=== PATIENT | male | born 1940 | race Two or more races ===

== ENCOUNTER 2019-08-17 11:08 | Emergency (ER) | payer MEDICARE, OTHER ==
[~2019-08-17] VITALS: Ht 177.8 cm; Wt 81.6 kg
--- NOTE | 2019-08-17 11:30 | NUR ---
PT [facility] C/O NAUSEA AND VOMITING 5 X STARTED TODAY. ZOFRAN 4MG IV GIVEN TEACHING PASTOR. PT AAOX4, VSS, BREATHING EVEN AND UNLABORED ON ROOM AIR. PT CONNECTED TO THE MONITOR
[2019-08-17] MEDS ORDERED: DONE23TA3 PO (11:35)
[2019-08-17] MEDS ORDERED: CLOT15CR63 TP (11:35)
[2019-08-17] MEDS ORDERED: ATOR10TA PO (11:35)
[2019-08-17] MEDS ORDERED: DUTA0.5C15 PO (11:35)
[2019-08-17] MEDS ORDERED: QUET25TA PO (11:35)
[2019-08-17] MEDS ORDERED: FLUO60SO3 TP (11:35)
[2019-08-17] MEDS ORDERED: HYDR12.55 PO (11:35)
[2019-08-17] MEDS ORDERED: TRIA80OI TP (11:35)
[2019-08-17] MEDS ORDERED: AMLO5TAB9 PO (11:35)
[2019-08-17] MEDS ORDERED: LIDO30AD10 TP (11:35)
[2019-08-17] MEDS ORDERED: HYDR28.32 TP (11:35)
[2019-08-17] MEDS ORDERED: ASPI-1169 PO (11:35)
[2019-08-17] MEDS ORDERED: MAGN400T26 PO (11:35)
[2019-08-17] MEDS ORDERED: GABA-534 PO (11:35)
[2019-08-17] MEDS ORDERED: OLOP2.5D EACHEYE (11:35)
[2019-08-17] MEDS ORDERED: CLON0.5T4 PO (11:35)
[2019-08-17] MEDS ORDERED: TERA2CAP4 PO (11:35)
[2019-08-17] MEDS ORDERED: CRIS60OI TP (11:35)
[2019-08-17] MEDS ORDERED: OLME40TA12 PO (11:35)
[2019-08-17] MEDS ORDERED: MEMA28CA PO (11:35)
[2019-08-17] MEDS ORDERED: DOCU-141 PO (11:35)
[2019-08-17] MEDS ORDERED: ZOLP10TA6 PO (11:35)
[2019-08-17] MEDS ORDERED: HYDR30CR99 RC (11:35)
[2019-08-17] MEDS ORDERED: ATEN25TA PO (11:35)
[2019-08-17] MEDS ORDERED: IBUP-1957 PO (11:35)
--- NOTE | 2019-08-17 11:42 | NUR ---
BLOOD DRAWN AND SENT TO LAB.
--- NOTE | 2019-08-17 11:46 | NUR ---
EKG AT BEDSIDE
[2019-08-17 11:47] LABS: BASOPHILS # (AUTO) 0.1 /CMM (0.0-0.2); BASOPHILS % (AUTO) 1.5 % (0.0-2.0); EOSINOPHILS % (AUTO) 2.3 % (0.0-6.0); HEMATOCRIT 36 % (39-51); HEMOGLOBIN 12.5 g/dL (13.5-17.5); LYMPHOCYTES # (AUTO) 1.2 /CMM (0.8-4.8); LYMPHOCYTES % (AUTO) 20.9 % (20.0-44.0); MEAN CORPUSCULAR HGB CONC 35 g/dl (31.0-36.0); MEAN CORPUSCULAR VOLUME 88 fL (80-96); MONOCYTES # (AUTO) 0.5 /CMM (0.1-1.30); MONOCYTES % (AUTO) 8.1 % (2.0-12.0); NEUTROPHILS # (AUTO) 3.9 /CMM (1.8-8.9); NEUTROPHILS % (AUTO) 67.2 % (43.0-81.0); PLATELET COUNT (AUTO) 172 /CMM (150-450); RED BLOOD CELL COUNT(AUTO) 4.13 MIL/uL (4.5-6.0); WHITE BLOOD COUNT (AUTO) 5.7 K/uL (4.3-11.0)
[2019-08-17] MEDS ORDERED: IV NS 0.9% 500 ML BAG IV ONE (12:00)
[2019-08-17 12:09] LABS: CARBON DIOXIDE 27 mmol/L (21-32); CHLORIDE 102 mmol/L (98-107); CREATININE 1.5 mg/dL (0.6-1.3); GLUCOSE 125 mg/dL (74-106); POTASSIUM 4.3 mmol/L (3.5-5.1); SODIUM SERUM 136 mmol/L (136-145); UREA NITROGEN, BLOOD 20 mg/dL (7-18)
[2019-08-17 12:15] LABS: ALANINE AMINOTRANSFERASE 19 U/L (12-78); ALBUMIN 3.3 g/dL (3.4-5.0); ALKALINE PHOSPHATASE 83 U/L (46-116); ASPARTATE AMINOTRANSFERASE 26 U/L (15-37); BILIRUBIN,DIRECT 0.1 mg/dL (0.0-0.2); BILIRUBIN,TOTAL 0.3 mg/dL (0.2-1.0); LIPASE 154 U/L (73-393); TOTAL PROTEIN, SERUM 6.3 g/dL (6.4-8.2)
[2019-08-17 12:51] VITALS: BP 118/74
--- NOTE | 2019-08-17 12:51 | NUR ---
Patient discharged to home in stable condition. Written and verbal after care instructions given. Patient verbalizes understanding of instruction.
== END 2019-08-17 12:51 | disposition home or self-care (01) ==
LOC: ER 11:16
DX: R11.2 Nausea with vomiting, unspecified (principal); E86.0 Dehydration; R00.2 Palpitations; I10 Essential (primary) hypertension; N40.0 Benign prostatic hyperplasia without lower urinary tract symptoms; F03.90 Unspecified dementia, unspecified severity, without behavioral disturbance, psychotic disturbance, mood disturbance, and anxiety; E78.5 Hyperlipidemia, unspecified; G62.9 Polyneuropathy, unspecified; Z79.899 Other long term (current) drug therapy; Z79.82 Long term (current) use of aspirin; Z98.890 Other specified postprocedural states
CPT/HCPCS: 36415; 80048; 80076; 83690; 84484; 85025; 93005; 99284; J7040

== ENCOUNTER 2019-08-27 19:18 | Inpatient (IN) | payer MEDICARE, OTHER ==
[~2019-08-27] VITALS: Ht 162.6 cm; Wt 76.2 kg
[~2019-08-27 19:18] MED LIST: AMLO5TAB9 PO; ASPI-1169 PO; ATEN25TA PO; ATOR10TA PO; CLON0.5T4 PO; CLOT15CR63 TP; CRIS60OI TP; DOCU-141 PO; DONE23TA3 PO; DUTA0.5C15 PO; FLUO60SO3 TP; GABA-534 PO; HYDR12.55 PO; HYDR28.32 TP; HYDR30CR99 RC; IBUP-1957 PO; LIDO30AD10 TP; MAGN400T26 PO; MEMA28CA PO; OLME40TA12 PO; OLOP2.5D EACHEYE; QUET25TA PO; TERA2CAP4 PO; TRIA80OI TP; ZOLP10TA6 PO
--- NOTE | 2019-08-27 19:32 | NUR ---
"s/p trip and fall from unknown flight of stairs, laceration on left side of face, unknown last tdap" pt awake and alert, -sob, nad noted, pending md abdul
[2019-08-27] MEDS ORDERED: TDAP [DIPH/PERTUSSIS/TET] 0.5 ML VIAL IM ONE ×2 (19:37→20:00)
[2019-08-27 19:44] LABS: BASOPHILS # (AUTO) 0.1 /CMM (0.0-0.2); HEMATOCRIT 39 % (39-51); HEMOGLOBIN 13.8 g/dL (13.5-17.5); LYMPHOCYTES # (AUTO) 1.6 /CMM (0.8-4.8); LYMPHOCYTES % (AUTO) 13.5 % (20.0-44.0); MEAN CORPUSCULAR HGB CONC 35 g/dl (31.0-36.0); MEAN CORPUSCULAR VOLUME 85 fL (80-96); MONOCYTES % (AUTO) 8.8 % (2.0-12.0); NEUTROPHILS # (AUTO) 8.8 /CMM (1.8-8.9); NEUTROPHILS % (AUTO) 74.7 % (43.0-81.0); PLATELET COUNT (AUTO) 252 /CMM (150-450); RED BLOOD CELL COUNT(AUTO) 4.61 MIL/uL (4.5-6.0); WHITE BLOOD COUNT (AUTO) 11.8 K/uL (4.3-11.0)
[2019-08-27] MEDS ORDERED: ONDANSETRON HCL/PF 4 MG/2 ML VIAL ONE (19:50)
[2019-08-27 20:06] LABS: ALANINE AMINOTRANSFERASE 22 U/L (12-78); ALBUMIN 4.2 g/dL (3.4-5.0); ALKALINE PHOSPHATASE 97 U/L (46-116); ASPARTATE AMINOTRANSFERASE 33 U/L (15-37); BILIRUBIN,DIRECT 0.1 mg/dL (0.0-0.2); BILIRUBIN,TOTAL 0.4 mg/dL (0.2-1.0); CALCIUM, SERUM 8.8 mg/dL (8.5-10.1); CARBON DIOXIDE 27 mmol/L (21-32); CHLORIDE 88 mmol/L (98-107); CREATININE 1.4 mg/dL (0.6-1.3); GLUCOSE 124 mg/dL (74-106); POTASSIUM 3.5 mmol/L (3.5-5.1); SODIUM SERUM 124 mmol/L (136-145); TOTAL PROTEIN, SERUM 7.5 g/dL (6.4-8.2); UREA NITROGEN, BLOOD 27 mg/dL (7-18)
--- NOTE | 2019-08-27 21:32 | NUR ---
-christy for any updates or translation
--- NOTE | 2019-08-27 21:47 | NUR ---
BED ASSIGNMENT TELE 106
[2019-08-27] MEDS ORDERED: ONDANSETRON HCL/PF - ER 4 MG/2 ML VIAL IV ONE (22:00)
--- NOTE | 2019-08-27 22:07 | NUR ---
report given to joshua abdul for pranav pt will be transported to 1st floor
[2019-08-27 22:30] VITALS: BP 174/71
--- NOTE | 2019-08-27 22:30 | NUR ---
HAND SHAPER ADMISSION NOTES RECEIVED PATIENT FROM ER VIA [facility] SAFELY TRANSFERRED TO BED, AMBULATORY UNSTEADY GAIT USES CANE, AWAKE ALERT AND ORIENTED X4, MALAYSIAN SPEAKING ABLE TO CARRY ON CONVERSATION, THROUGH WRITTEN NOTES, RESPIRATIONS EVEN AND UNLABORED WITH EQUAL RISE AND FALL OF CHEST, PLACED ON FINISH FILER SB 59, ORIENTED TO STAFF AND CALL LIGHT AND KEPT WITHIN REACH, TOILETING OFFERED, NOTED WITH LACERATION TO LEFT SCALP AREA, AND LEFT FACIAL ORBITAL AREA SWOLLEN AND BRUISED, WOUND PHOTOS TAKEN PLACED IN CHART , BELONGING LIST DONE ,DAUGHTER TOOK HOME MONEY AND WATCH. IV SITE TO LEFT AC #20G INTACT AND PATENT, STATES PAIN 6/10 AT THIS TIME, NOTED CHANGE IN VS. WILL CONTINUE TO MONITOR AND FOLLOW MD ORDERS.
--- NOTE | 2019-08-27 22:36 | NUR ---
transported to [address] [place] [id number]
[2019-08-28] VITALS (7 sets, daily range): BP systolic 137–162; BP diastolic 38–68
[2019-08-28] MEDS ORDERED: MAG HYDROX/AL HYDROX/SIMETH 30 ML UDC PO PRN
[2019-08-28] MEDS ORDERED: ONDANSETRON HCL/PF 4 MG/2 ML VIAL IVP PRN
[2019-08-28] MEDS ORDERED: ACETAMINOPHEN 325 MG TABLET PO PRN
[2019-08-28] MEDS ORDERED: HYDROCODONE/APAP 5/325MG 1 EACH TABLET PO PRN
[2019-08-28] MEDS ORDERED: MAGNESIUM HYDROXIDE 30 ML UDC PO PRN
[2019-08-28] MEDS ORDERED: Z GUARD REMEDY 2 OZ OINT TP PRN
[2019-08-28] MEDS: ZOLPIDEM TARTRATE 5 MG TABLET PO PRN ×2 (00:08→23:06)
[2019-08-28] MEDS: IV NS 0.9% 1,000 ML IV PRN ×2 (00:08→11:45)
--- NOTE | 2019-08-28 00:08 | NUR ---
GAS METER INSTALLER HELPER NOTES PATIENT STATES NO PAIN DOES NOT NORCO PAIN MEDICATION , REQUESTED FOR SLEEP AIDE INSTEAD. NOTED VS HAVE DECREASED. VS WNL. BP WNL 137/67.
[2019-08-28 05:36] LABS: APPEARANCE,URINE CLEAR (CLEAR); BILIRUBIN,URINE NEGATIVE (NEGATIVE); BLOOD, URINE TRACE-INTA Ery/uL (NEGATIVE); COLOR,URINE YELLOW (YELLOW); KETONES,URINE 15 (NEGATIVE); LEUKOCYTE ESTERASE ,URINE NEGATIVE (NEGATIVE); NITRITE, URINE NEGATIVE (NEGATIVE); PROTEIN,URINE NEGATIVE (NEGATIVE); UGLUCOSE NEGATIVE (NEGATIVE); UROBILINOGEN,URINE 0.2 EU/dL (0.2)
[2019-08-28 06:03] LABS: RBC,URINE 0-2 /HPF (0-2); WBC,URINE 0-2 /HPF (0-3)
[2019-08-28 06:04] LABS: BACTERIA,URINE Rare /HPF (None Seen); SQUAMOUS EPITHELIAL CELL,UR Rare /HPF (None Seen)
--- NOTE | 2019-08-28 06:28 | NUR ---
MUSEUM DIRECTOR CLOSING NOTES PATIENT AMBULATORY UNSTEADY GAIT USES CANE, AWAKE ALERT AND ORIENTED X4, MALDIVIAN SPEAKING ABLE TO CARRY ON CONVERSATION, THROUGH WRITTEN NOTES, RESPIRATIONS EVEN AND UNLABORED WITH EQUAL RISE AND FALL OF CHEST, PLACED ON PROCESSING CLERK SB 59, NO CHANGES THROUGHOUT SHIFT, CALL LIGHT KEPT WITHIN REACH, TOILETING OFFERED, URINAL WITHIN REACH , LACERATION TO LEFT SCALP AREA WITH DRY DSG, NO BLEEDING NOTED AT THIS TIME AND LEFT FACIAL ORBITAL AREA SWOLLEN AND BRUISED, DENIES ANY PAIN AT THIS TIME, NO CHANGE IN LOC ,IV SITE TO LEFT AC #20G INTACT AND PATENT IVF RUNNING ORDERED, WILL CONTINUE TO MONITOR AND ENDORSE TO NEXT SHIFT, REMAINS COMFORTABLE AT THIS TIME.BP WNL.
--- NOTE | 2019-08-28 06:49 | NUR ---
LATENT PRINT EXAMINER NOTES PATIENT COMPLAINT OF FEELING OF NAUSEA. ZOFRAN PRN GIVEN , WILL CONTINUE TO MONITOR FOR EFFECTIVENESS.
[2019-08-28 07:56] LABS: BASOPHILS % (AUTO) 0.6 % (0.0-2.0); EOSINOPHILS % (AUTO) 2.2 % (0.0-6.0); HEMATOCRIT 36 % (39-51); LYMPHOCYTES # (AUTO) 1.4 /CMM (0.8-4.8); LYMPHOCYTES % (AUTO) 19.5 % (20.0-44.0); MEAN CORPUSCULAR HGB CONC 36 g/dl (31.0-36.0); MEAN CORPUSCULAR VOLUME 85 fL (80-96); MONOCYTES # (AUTO) 0.8 /CMM (0.1-1.30); MONOCYTES % (AUTO) 11.3 % (2.0-12.0); NEUTROPHILS # (AUTO) 4.9 /CMM (1.8-8.9); NEUTROPHILS % (AUTO) 66.4 % (43.0-81.0); PLATELET COUNT (AUTO) 214 /CMM (150-450); RED BLOOD CELL COUNT(AUTO) 4.27 MIL/uL (4.5-6.0); WHITE BLOOD COUNT (AUTO) 7.3 K/uL (4.3-11.0)
--- NOTE | 2019-08-28 08:00 | NUR ---
TELE1/RN AM SHIFT INITIAL RECEIVED PT AWAKE IN BED, PT A/O X 4, HARD OF HEARING, DENIES ANY SYMPTOMS. ON ROOM AIR, SATURATING @ 98%, RESPIRATIONS EVEN & UNLABORED, LUNG SOUNDS CLEAR. ON TELE MONITORING SINUS JOEY, HR 54, ASYMPTOMATIC. PT WITH ON GOING IV INFUSION OF NS @ 75CC/HR, IV SITE PATENT WITH NO S/S OF INFECTION. PT NOTED WITH FACIAL BRUISING (FROM THE FALL HE HAD). NO SCHEDULED AM MEDS TO BE GIVEN. PT IS COMFORTABLE. CL WITHIN REACHED AND SAFETY MAINTAINED. ON GOING MONITORING.
--- NOTE | 2019-08-28 09:22 | NUR ---
TELE1/RN PHYSICAL THERAPY PT BEING SEEN BY PHYSICAL THERAPIST FOR EVALUATION. MONITORING CONTINUED.
[2019-08-28 09:45] LABS: CHOLESTEROL 212 mg/dL (<200); HDL CHOLESTEROL 49 mg/dL (40-60); LDL 141 mg/dL (0-99); THYROID STIMULATING HORMONE 1.201 uIU/mL (0.358-3.74); TRIGLYCERIDES 83 mg/dL (30-150)
[2019-08-28 10:15] LABS: CALCIUM, SERUM 8.6 mg/dL (8.5-10.1); CARBON DIOXIDE 27 mmol/L (21-32); CHLORIDE 90 mmol/L (98-107); CREATININE 1.2 mg/dL (0.6-1.3); GLUCOSE 96 mg/dL (74-106); POTASSIUM 3.2 mmol/L (3.5-5.1); SODIUM SERUM 126 mmol/L (136-145); UREA NITROGEN, BLOOD 18 mg/dL (7-18)
[2019-08-28 10:16] LABS: ALANINE AMINOTRANSFERASE 20 U/L (12-78); ALBUMIN 3.6 g/dL (3.4-5.0); ALKALINE PHOSPHATASE 89 U/L (46-116); ASPARTATE AMINOTRANSFERASE 36 U/L (15-37); BILIRUBIN,TOTAL 0.5 mg/dL (0.2-1.0); MAGNESIUM 1.8 mg/dL (1.8-2.4); PHOSPHORUS 2.6 mg/dL (2.5-4.9); TOTAL PROTEIN, SERUM 6.6 g/dL (6.4-8.2)
--- NOTE | 2019-08-28 10:38 | NUR ---
TELE1/RN ROUNDS - DR. CONDE PT SEEN & EXAMINED BY DR. CONDE. NO NEW ORDER RECEIVED AT THIS TIME. MONITORING CONTINUED.
--- NOTE | 2019-08-28 11:40 | NUR ---
WOUND CARE CONSULT: PT PRESENTS WITH LARGE DRY WOUND TO SCALP AND OPEN WOUND TO SCALP, PRESENT ON ADMISSION. RECOMMEND SURGICAL CONSULT. DR GOODRICH AWARE OF SURGICAL CONSULT REQUEST. PT IS AMBULATORY WITH ASSISTANCE AND IS CONTINENT AT THIS TIME. NONSTICK DRESSING IN PLACE. WILL SEE PRN. Addendum: 08/28/19 at 1141 by SELVIN BERMUDEZ WNDNU Amended: Links added.
[2019-08-28] MEDS: POTASSIUM CHLORIDE 20 MEQ TAB.PRT.SR PO SCH ×3 (11:45→14:24)
[2019-08-28] MEDS ORDERED: DONE10TA11 PO (13:19)
[2019-08-28] MEDS ORDERED: GABA800T11 PO (13:19)
[2019-08-28] MEDS ORDERED: IBUP-1957 PO (13:19)
[2019-08-28] MEDS ORDERED: DUTA0.5C PO (13:19)
[2019-08-28] MEDS ORDERED: ATOR10TA PO (13:19)
[2019-08-28] MEDS ORDERED: HYDR12.5 PO (13:19)
[2019-08-28] MEDS ORDERED: TRIA15OI2 TP (13:19)
[2019-08-28] MEDS ORDERED: LIDO700A30 TP (13:19)
[2019-08-28] MEDS ORDERED: ATEN25TA PO (13:19)
[2019-08-28] MEDS ORDERED: TERA5CAP4 PO (13:19)
[2019-08-28] MEDS ORDERED: ASPI-605 PO (13:19)
[2019-08-28] MEDS ORDERED: ZOLP10TA6 PO (13:19)
[2019-08-28] MEDS ORDERED: CLON0.5T4 PO (14:29)
[2019-08-28] MEDS ORDERED: OLME20TA13 PO (14:29)
[2019-08-28] MEDS ORDERED: FLUO30CR11 TP (14:29)
[2019-08-28] MEDS ORDERED: QUET50TA15 PO (14:29)
[2019-08-28] MEDS ORDERED: MAGN400T26 PO (14:29)
[2019-08-28] MEDS ORDERED: MEMA28CA PO (14:29)
[2019-08-28] MEDS ORDERED: DOCU-141 PO (14:29)
[2019-08-28] MEDS ORDERED: AMLO5TAB9 PO (14:29)
[2019-08-28 14:46] LABS: FREE PSA 0.26 ng/mL (0.00-45); PROSTATE SPECIFIC ANTIGEN SCR 2.68 ng/mL (0.00-4.00)
--- NOTE | 2019-08-28 15:30 | NUR ---
TELE1/RN HOME MEDS NOTIFIED DR. VALENZUELA VIA PHONE THAT PT'S HOME MEDICATIONS WAS ENTERED TO THE SYSTEM AND IS READY TO BE RECONCILED.
--- NOTE | 2019-08-28 19:36 | NUR ---
TELE1/RN AM SHIFT END NOTES NO ACUTE CHANGE OF CONDITION NOTED DURING THE SHIFT. ALL NEEDS MET. PT ENDORSED TO PM NURSE TO CONTINUE CARE. CL WITHIN REACHED AND SAFETY MAINTAINED.
--- NOTE | 2019-08-28 19:45 | NUR ---
TAKER OFF BRAKER MACHINE NOTE PATIENT REPORT GIVEN BEDSIDE. PATIENT IN BED A/O X 4 HARD OF HEARING. PATIENT BEING SEEN BY GITA VILA AT THIS TIME. PATIENT ABLE TO COMMUNICATE WITH CLIP BOARD. PATIENT DENIES CHEST PAIN, SOB, , PAIN OR DISCOMFORT.PATIENT PATIENT HAS LAC RUNNING 75 ML/HR NO S/S OF INFECTION OR INFILTRATION. SAFETY PRECAUTIONS IN PLACE. PATIENT VERBALIZES USE OF CALL LIGHT. RN WILL CONTINUE TO MONITOR FOR CHANGES.
[2019-08-29] VITALS (7 sets, daily range): BP systolic 104–166; BP diastolic 46–68
--- NOTE | 2019-08-29 02:22 | NUR ---
EVENTS AND PROMOTIONS ASSISTANT NOTE PATIENT REPORT GIVEN TO PRICILLA WARE FOR RACH.
[2019-08-29] MEDS: IV NS 0.9% 1,000 ML IV PRN ×2 (03:28→23:58)
[2019-08-29 06:25] LABS: BASOPHILS # (AUTO) 0.1 /CMM (0.0-0.2); BASOPHILS % (AUTO) 1.3 % (0.0-2.0); EOSINOPHILS % (AUTO) 4.8 % (0.0-6.0); HEMATOCRIT 36 % (39-51); HEMOGLOBIN 12.9 g/dL (13.5-17.5); LYMPHOCYTES # (AUTO) 1.9 /CMM (0.8-4.8); LYMPHOCYTES % (AUTO) 29.8 % (20.0-44.0); MEAN CORPUSCULAR HGB CONC 36 g/dl (31.0-36.0); MEAN CORPUSCULAR VOLUME 85 fL (80-96); MONOCYTES # (AUTO) 0.8 /CMM (0.1-1.30); MONOCYTES % (AUTO) 12.1 % (2.0-12.0); NEUTROPHILS # (AUTO) 3.4 /CMM (1.8-8.9); PLATELET COUNT (AUTO) 208 /CMM (150-450); RED BLOOD CELL COUNT(AUTO) 4.22 MIL/uL (4.5-6.0); WHITE BLOOD COUNT (AUTO) 6.4 K/uL (4.3-11.0)
[2019-08-29 06:46] LABS: ALBUMIN 3.3 g/dL (3.4-5.0); BILIRUBIN,TOTAL 0.4 mg/dL (0.2-1.0); CALCIUM, SERUM 8.7 mg/dL (8.5-10.1); CREATININE 1.2 mg/dL (0.6-1.3); MAGNESIUM 1.9 mg/dL (1.8-2.4); PHOSPHORUS 2.3 mg/dL (2.5-4.9); POTASSIUM 3.6 mmol/L (3.5-5.1); TOTAL PROTEIN, SERUM 6.2 g/dL (6.4-8.2)
--- NOTE | 2019-08-29 06:49 | NUR ---
VENEER SAWYER CLOSING NOTES NO ACUTE CHANGES SINCE RACH TRANSFER. PATIENT RESTING IN BED IN NO DISTRESS. BREATHING EVEN AND UNLABORED ON ROOM AIR. SR-SB ON TELE MONITOR, CURRENT HR 50s. ASYMPTOMATIC. DENIES PAIN OR DISCOMFORT. DENIES N/V. IV INTACT AND PATENT WITH IVF INFUSING. REMAINS AFEBRILE. PATIENT TAKES OFF BURN NET THROUGHOUT SHIFT. ALL OTHER NEEDS ATTENDED TO. SAFETY MEASURES IN PLACE. CALL LIGHT WITHIN REACH. WILL ENDORSE TO ONCOMING NURSE FOR RACH.
--- NOTE | 2019-08-29 07:49 | NUR ---
OPENING NOTES REPORT RECEIVED FROM DOCK OPERATIONS SUPERVISOR RN. PT IS ASLEEP IN BED WITH EQUAL CHEST RISE BILATERALLY. WALKER NEED BED SIDE. PT IV GOING AT 75 MLS/ HR NS ORDERED. ON TELE MONITOR PT IS CURRENTLY 64HR SB, WITH REPORTS THAT PT DROPS INTO THE 30S. BED IS LOCKED AND IN LOWEST POSITION WITH CALL LIGHT IN REACH OF PATIENT. WILL CONTINUE TO MONITOR.
[2019-08-29] MEDS ORDERED: HYDROCHLOROTHIAZIDE 12.5 MG CAPSULE PO SCH (10:30)
[2019-08-29] MEDS: LIDOCAINE 5% (PATCH) 1 EA PATCH TP SCH (10:30)
[2019-08-29] MEDS ORDERED: ZOLPIDEM TARTRATE 10 MG TABLET PO PRN (10:30)
[2019-08-29] MEDS: FLUOCINONIDE 0.05% CREAM 60 GM TUBE TP SCH (10:30)
[2019-08-29] MEDS: DUTASTERIDE (0.5 MG) 0.5 MG CAPSULE PO SCH (10:59)
[2019-08-29] MEDS: ASPIRIN EC 81 MG TABLET.DR PO SCH (10:59)
[2019-08-29] MEDS: LOSARTAN POTASSIUM 25 MG TABLET PO SCH (11:00)
[2019-08-29] MEDS: AMLODIPINE BESYLATE 5 MG TABLET PO SCH ×2 (11:00→16:31)
[2019-08-29] MEDS: HYDROCHLOROTHIAZIDE 25 MG TABLET PO SCH (13:08)
[2019-08-29] MEDS ORDERED: K PHOS NEUTRAL 250 MG TABLET PO ONE (13:30)
--- NOTE | 2019-08-29 15:23 | NUR ---
Social service consult requested by Hubert Levi DNP for advance directive with pts daughter, Sowmya, being present. SW attempted to meet with pt and pt family regarding advance directive but pts daughter Sowmya was not present and pt unable to provide contact information for SW to contact her. No information regarding next of kin or person to notify listed on facesheet. Pt also unable to provide a time when his daughter will be at [facility] next. SW will follow up with pt and pt family at a later time.
[2019-08-29 15:40] LABS: CREATININE, URINE 95.5 MG/DL (30.0-125.0); URINE TOTAL PROTEIN 12.3 mg/dL (0-11.9)
[2019-08-29 15:45] LABS: APPEARANCE,URINE Clear (CLEAR); BILIRUBIN,URINE Negative (NEGATIVE); BLOOD, URINE Negative Ery/uL (NEGATIVE); COLOR,URINE Yellow (YELLOW); KETONES,URINE Negative (NEGATIVE); LEUKOCYTE ESTERASE ,URINE Negative (NEGATIVE); NITRITE, URINE Negative (NEGATIVE); PH,URINE 6.5 (5.0-8.0); PROTEIN,URINE Negative (NEGATIVE); UGLUCOSE Negative (NEGATIVE); UROBILINOGEN,URINE 0.2 EU/dL (0.2)
[2019-08-29] MEDS: DOCUSATE SODIUM 100 MG CAPSULE PO SCH (16:30)
[2019-08-29] MEDS: MAGNESIUM OXIDE 400 MG TABLET PO SCH (16:32)
--- NOTE | 2019-08-29 17:00 | NUR ---
MD AWARE OF LOW BP. Addendum: 08/29/19 at 1857 by MELISSA BAUTISTA RN MD AWARE OF HIGH BP. DISREGARD LOW BP.
[2019-08-29] MEDS: TERAZOSIN HCL 5 MG CAPSULE PO SCH (17:47)
[2019-08-29 17:48] LABS: EOSINOPHIL,URINE None Seen
--- NOTE | 2019-08-29 18:49 | NUR ---
RN CLOSING NOTES PT DENIES ANY PAIN OR SOB. PT HAS NS RUNNING AT 75 MLS/HR. IV SITE IS INTACT AND FLUSHING. PT WALKER AT BEDSIDE PT IS ABLE TO AMBULATE TO RESTROOM. BED IS LOCKED AND IN LOWEST POSITION WITH CALL LIGHT IN REACH. WILL ENDORSE RACH TO KEY WORKER RN.
--- NOTE | 2019-08-29 19:15 | NUR ---
CHANGE OF SHIFT REPORT Patient in bed, awake, A/O x4. Stable oxygen saturation on RA, denies SOB. IVF infusing. Instruction to use call light for assistance, verbalized understanding. Safety measure maintained.
[2019-08-29] MEDS ORDERED: QUETIAPINE FUMARATE 25 MG TABLET PO SCH (22:00)
[2019-08-29] MEDS ORDERED: ATORVASTATIN 10 MG TABLET PO SCH (22:00)
[2019-08-29] MEDS ORDERED: DONEPEZIL 5 MG TABLET PO SCH (22:00)
[2019-08-29] MEDS ORDERED: GABAPENTIN 400 MG CAPSULE PO SCH (22:00)
[2019-08-29] MEDS ORDERED: ALBUTEROL SULFATE 2 MG TABLET ONE (22:32)
[2019-08-30 04:54] VITALS: BP 140/61
--- NOTE | 2019-08-30 06:15 | NUR ---
END OF SHIFT REPORT Patient in bed, on RA tolerating well. IVF infusing, denies pain. slept well with PRN Ambien. No acute events overnight. Fall precaution maintained.
[2019-08-30 08:00] VITALS: BP 130/56
[2019-08-30] MEDS: DUTASTERIDE (0.5 MG) 0.5 MG CAPSULE PO SCH (08:30)
[2019-08-30] MEDS: DOCUSATE SODIUM 100 MG CAPSULE PO SCH ×2 (08:30→17:18)
[2019-08-30] MEDS: MAGNESIUM OXIDE 400 MG TABLET PO SCH ×2 (08:30→17:18)
[2019-08-30] MEDS: ASPIRIN EC 81 MG TABLET.DR PO SCH (08:30)
[2019-08-30] MEDS: LOSARTAN POTASSIUM 25 MG TABLET PO SCH (08:32)
[2019-08-30] MEDS: AMLODIPINE BESYLATE 5 MG TABLET PO SCH ×2 (08:32→17:18)
[2019-08-30] MEDS: HYDROCHLOROTHIAZIDE 25 MG TABLET PO SCH (08:32)
[2019-08-30] MEDS: FLUOCINONIDE 0.05% CREAM 60 GM TUBE TP SCH (08:33)
[2019-08-30] MEDS: LIDOCAINE 5% (PATCH) 1 EA PATCH TP SCH (08:33)
[2019-08-30] MEDS ORDERED: TRIAMCINOLONE OINT 0.1% 15 GM TUBE TP SCH (09:00)
[2019-08-30] MEDS ORDERED: MEMANTINE HCL 5 MG TABLET PO SCH (09:00)
--- NOTE | 2019-08-30 11:56 | NUR ---
Follow up: Social service consult requested by Hubert Levi DNP for advance directive with pts daughter, Sowmya, being present. BRITTA attempted to meet with pt and pt family again regarding advance directive but pts daughter Sowmya was not present. SW called pts daughter, Sowmya [[phone]] and left her a voicemail regarding the advance directive application and process. SW left call back number for daughter to contact when she visits pt at hospital. BRITTA will follow up with pt and pt family at a later time.
[2019-08-30 12:06] LABS: PTH, INTACT 36 pg/mL (15-65)
[2019-08-30 16:00] VITALS: BP 144/58
[2019-08-30 17:18] VITALS: BP 144/58
[2019-08-30] MEDS: TERAZOSIN HCL 5 MG CAPSULE PO SCH (17:18)
--- NOTE | 2019-08-30 18:30 | NUR ---
RN DC NOTE Received order to DC. Nurses, rn case management and daughter try to encourage rehab, however, patient refuses. Therefore, patient was taken home. Vitals stable. Wound pictures taken. Belongings checklist signed. Patient ambulated and sat up at edge of bed today. Taken home by daughter Sowmya.
--- NOTE | 2019-08-30 19:20 | NUR ---
Received call from daughter stating her father fell at home again. Advised to call 911 and bring to ER immediately
[2019-08-31 06:46] LABS: *SPE A/G RATIO 1.3 (0.7-1.7); *SPE ALBUMIN 3.3 g/dL (2.9-4.4); *SPE ALPHA-1-GLOBULIN 0.2 g/dL (0.0-0.4); *SPE ALPHA-2-GLOBULIN 0.6 g/dL (0.4-1.0); *SPE BETA GLOBULIN 0.8 g/dL (0.7-1.3); *SPE GLOBULIN, TOTAL 2.5 g/dL (2.2-3.9); *SPE M-SPIKE Not Observed g/dL (Not Observed); *SPEGAMMA GLOBULIN 0.9 g/dL (0.4-1.8)
[2019-09-02] MEDS ORDERED: VALS80TA2 PO (12:43)
== END 2019-08-30 18:30 | disposition home health service (06) | DRG 913 ==
LOC: ER 19:21 → TELE1 21:48 → MEDSG1 08-29 09:31
PROVIDERS: ADMIT Hospitalist
DX: S09.90XA Unspecified injury of head, initial encounter (principal); N17.0 Acute kidney failure with tubular necrosis; E87.1 Hypo-osmolality and hyponatremia; J98.11 Atelectasis; W10.9XXA Fall (on) (from) unspecified stairs and steps, initial encounter; S01.01XA Laceration without foreign body of scalp, initial encounter; X58.XXXA Exposure to other specified factors, initial encounter; Y93.9 Activity, unspecified; Y92.009 Unspecified place in unspecified non-institutional (private) residence as the place of occurrence of the external cause; E87.6 Hypokalemia; E78.5 Hyperlipidemia, unspecified; D72.829 Elevated white blood cell count, unspecified; Z87.891 Personal history of nicotine dependence; F03.90 Unspecified dementia, unspecified severity, without behavioral disturbance, psychotic disturbance, mood disturbance, and anxiety; D35.2 Benign neoplasm of pituitary gland; N40.0 Benign prostatic hyperplasia without lower urinary tract symptoms; G62.9 Polyneuropathy, unspecified; S60.512A Abrasion of left hand, initial encounter; E86.1 Hypovolemia; I10 Essential (primary) hypertension; Z85.528 Personal history of other malignant neoplasm of kidney; Z79.82 Long term (current) use of aspirin; R40.2142 Coma scale, eyes open, spontaneous, at arrival to emergency department; R40.2362 Coma scale, best motor response, obeys commands, at arrival to emergency department; R40.2252 Coma scale, best verbal response, oriented, at arrival to emergency department; F07.81 Postconcussional syndrome
CPT/HCPCS: 36415; 70450-TC; 71045-TC; 76770-TC; 80048-TC; 80053-TC; 80061-TC; 80076-TC; 80305; 81000-TC; 82550-TC; 82570-TC; 83735-TC; 83970; 84100-TC; 84153-TC; 84154-TC; 84155; 84155-TC; 84165; 84300-TC; 84443-TC; 84484-TC; 85025-TC; 85730-TC; 87081-TC; 87086-TC; 90715; 93307-TC; 93880-TC; 97116-TC; 97530-TC; 97535-TC; A6403; G0378; J2405; J7030

== ENCOUNTER 2019-08-30 20:01 | Inpatient (IN) | payer MEDICARE, OTHER ==
[~2019-08-30] VITALS: Ht 162.6 cm; Wt 76.2 kg
[~2019-08-30 20:01] MED LIST changes: -ASPI-1169 PO; +ASPI-605 PO; -CLOT15CR63 TP; -CRIS60OI TP; +DONE10TA11 PO; -DONE23TA3 PO; +DUTA0.5C PO; -DUTA0.5C15 PO; +FLUO30CR11 TP; -FLUO60SO3 TP; -GABA-534 PO; +GABA800T11 PO; +HYDR12.5 PO; -HYDR12.55 PO; -HYDR28.32 TP; -HYDR30CR99 RC; -LIDO30AD10 TP; +LIDO700A30 TP; +OLME20TA13 PO; -OLME40TA12 PO; -OLOP2.5D EACHEYE; -QUET25TA PO; +QUET50TA15 PO; -TERA2CAP4 PO; +TERA5CAP4 PO; +TRIA15OI2 TP; -TRIA80OI TP
--- NOTE | 2019-08-30 20:32 | NUR ---
PT BIB DAUGHTER, DISCHARGED FROM HOSPITAL TODAY, ADMITTED FOR SYNCOPE, HAD SYNCOPAL EPISODE TODAY, HELPED ONTO FLOOR BY DAUGHTER, DENIES TRAUMA OR INJURY, TO ER BED 4, VITALS STABLE, AWAITING MED EVAL
[2019-08-30 20:51] LABS: BASOPHILS # (AUTO) 0.1 /CMM (0.0-0.2); BASOPHILS % (AUTO) 1.2 % (0.0-2.0); EOSINOPHILS % (AUTO) 2.4 % (0.0-6.0); HEMATOCRIT 36 % (39-51); HEMOGLOBIN 12.5 g/dL (13.5-17.5); LYMPHOCYTES % (AUTO) 14.3 % (20.0-44.0); MEAN CORPUSCULAR HGB CONC 35 g/dl (31.0-36.0); MEAN CORPUSCULAR VOLUME 87 fL (80-96); MONOCYTES # (AUTO) 0.6 /CMM (0.1-1.30); NEUTROPHILS # (AUTO) 5.3 /CMM (1.8-8.9); NEUTROPHILS % (AUTO) 74.1 % (43.0-81.0); PLATELET COUNT (AUTO) 184 /CMM (150-450); WHITE BLOOD COUNT (AUTO) 7.1 K/uL (4.3-11.0)
[2019-08-30 20:59] LABS: CALCIUM, SERUM 8.9 mg/dL (8.5-10.1); CARBON DIOXIDE 28 mmol/L (21-32); CHLORIDE 93 mmol/L (98-107); CREATININE 1.3 mg/dL (0.6-1.3); GLUCOSE 128 mg/dL (74-106); POTASSIUM 3.8 mmol/L (3.5-5.1); SODIUM SERUM 130 mmol/L (136-145); UREA NITROGEN, BLOOD 23 mg/dL (7-18)
--- NOTE | 2019-08-30 21:04 | NUR ---
EPIC ORTHODONTIC TREATMENT COORDINATOR PAGED FOR PANEL
[2019-08-30 21:05] LABS: ALANINE AMINOTRANSFERASE 23 U/L (12-78); ALBUMIN 3.4 g/dL (3.4-5.0); ALKALINE PHOSPHATASE 86 U/L (46-116); ASPARTATE AMINOTRANSFERASE 31 U/L (15-37); BILIRUBIN,DIRECT 0.1 mg/dL (0.0-0.2); BILIRUBIN,TOTAL 0.3 mg/dL (0.2-1.0); TOTAL PROTEIN, SERUM 6.5 g/dL (6.4-8.2)
--- NOTE | 2019-08-30 21:55 | NUR ---
CALLED REPORT TO SHANA WARE
[2019-08-30] MEDS ORDERED: MAG HYDROX/AL HYDROX/SIMETH 30 ML UDC PO PRN (22:00)
[2019-08-30] MEDS ORDERED: MAGNESIUM HYDROXIDE 30 ML UDC PO PRN (22:00)
[2019-08-30] MEDS ORDERED: ONDANSETRON HCL/PF 4 MG/2 ML VIAL IVP PRN (22:00)
[2019-08-30] MEDS ORDERED: ACETAMINOPHEN 325 MG TABLET PO PRN (22:00)
[2019-08-30] MEDS ORDERED: Z GUARD REMEDY 2 OZ OINT TP PRN (22:00)
[2019-08-30 22:30] VITALS: BP 153/76
--- NOTE | 2019-08-30 22:30 | NUR ---
BINDERY OPERATOR TELE NOTES RECEIVED PATIENT VIA GURNEY, SAFELY TRANSFERRED TO BED, AWAKE ALERT AND ORIENTED X3, RESPIRATIONS EVEN AND UNLABORED WITH EQUAL RISE AND FALL OF CHEST, DENIES ANY PAIN OR DISCOMFORT AT THIS TIME, ADMITTED FOR SYNCOPE, IV SITE TO LEFT AC #20 G INTACT AND PATENT, NO REDNESS, NO INFILTRATION PRESENT, NOTED WITH LEFT FACE, CHIN AND NECK DISCOLORATION, LEFT SCALP NOTED WITH LACERATION WITH SCABS, PICTURE TAKEN, BELONGINGS LIST DONE, DISCUSSED PLAN OF CARE, ALL NEEDS ATTENDED WILL CONTINUE TO MONITOR AND ATTEND TO NEEDS AND FOLLOW MD ORDERS. ORIENTED TO STAFF AND CALL LIGHT AND KEPT WITHIN REACH, SAFETY PRECAUTIONS IN PLACE, LOW BED AND LOCKED, HOSPITALIST AWARE OF LEFT EYE REDNESS WILL AWAIT FOR FURTHER RECOMMENDATIONS EYE CARE PROVIDED.
--- NOTE | 2019-08-30 22:31 | NUR ---
PET TRAINER NOTES PLACED ON WORK AND FAMILY LIFE CONSULTANT SR 61 NOTED AT TIMES SB 54
--- NOTE | 2019-08-30 22:41 | NUR ---
PT TAKEN TO ROOM 304-2 VIA ACLS PROTOCOL
[2019-08-30 23:00] VITALS: BP 153/76
[2019-08-30] MEDS: IV NS 0.9% 1,000 ML IV PRN (23:12)
[2019-08-31] VITALS (10 sets, daily range): BP systolic 111–161; BP diastolic 52–74
[2019-08-31] MEDS: ZOLPIDEM TARTRATE 10 MG TABLET PO PRN (00:04)
--- NOTE | 2019-08-31 00:04 | NUR ---
PAINT MIXER HAND NOTES PATIENT REQUESTING FOR ZOLPIDEM. PRN GIVEN ORDERED, WILL CONTINUE TO MONITOR FOR EFFECTIVENESS.
[2019-08-31 02:57] LABS: APPEARANCE,URINE CLEAR (CLEAR)
[2019-08-31 02:58] LABS: BILIRUBIN,URINE NEGATIVE (NEGATIVE); BLOOD, URINE N Ery/uL (NEGATIVE); COLOR,URINE YELLOW (YELLOW); KETONES,URINE NEGATIVE (NEGATIVE); LEUKOCYTE ESTERASE ,URINE NEGATIVE (NEGATIVE); NITRITE, URINE NEGATIVE (NEGATIVE); PH,URINE 6.5 (5.0-8.0); PROTEIN,URINE NEGATIVE (NEGATIVE); UGLUCOSE NEGATIVE (NEGATIVE); UROBILINOGEN,URINE 0.2 EU/dL (0.2)
--- NOTE | 2019-08-31 06:22 | NUR ---
RUSSIAN LANGUAGE PROFESSOR NOTES PATIENT SLEEPING EASILY AROUSABLE ,ALERT AND ORIENTED X3, RESPIRATIONS EVEN AND UNLABORED WITH EQUAL RISE AND FALL OF CHEST, DENIES ANY PAIN OR DISCOMFORT AT THIS TIME, IV SITE TO LEFT AC #20 G INTACT AND PATENT, NO REDNESS, NO INFILTRATION PRESENT, IVF RUNNING ORDERED ON MORTGAGE BANKER NOTED RANGING FROM SB TO SR ,50'S-57 AT REST AND 60'S WHEN AWAKE , NO DISTRESS PRESENT ASYMPTOMATIC , TOILETING AND FLUIDS OFFERED, URINAL AT BEDSIDE, ALL NEEDS ATTENDED WILL CONTINUE TO MONITOR ,, CALL LIGHT KEPT WITHIN REACH, SAFETY PRECAUTIONS IN PLACE, LOW BED AND LOCKED, REMAINS COMFORTABLE AT THIS TIME, WILL ENDORSE TO NEXT SHIFT.
[2019-08-31 06:59] LABS: BASOPHILS % (AUTO) 0.8 % (0.0-2.0); EOSINOPHILS % (AUTO) 3.9 % (0.0-6.0); HEMATOCRIT 35 % (39-51); HEMOGLOBIN 12.2 g/dL (13.5-17.5); LYMPHOCYTES # (AUTO) 1.5 /CMM (0.8-4.8); LYMPHOCYTES % (AUTO) 25.5 % (20.0-44.0); MEAN CORPUSCULAR HGB CONC 35 g/dl (31.0-36.0); MEAN CORPUSCULAR VOLUME 86 fL (80-96); MONOCYTES # (AUTO) 0.5 /CMM (0.1-1.30); MONOCYTES % (AUTO) 8.9 % (2.0-12.0); NEUTROPHILS # (AUTO) 3.7 /CMM (1.8-8.9); NEUTROPHILS % (AUTO) 60.9 % (43.0-81.0); PLATELET COUNT (AUTO) 186 /CMM (150-450); RED BLOOD CELL COUNT(AUTO) 4.05 MIL/uL (4.5-6.0); WHITE BLOOD COUNT (AUTO) 6.1 K/uL (4.3-11.0)
[2019-08-31 07:06] LABS: CALCIUM, SERUM 9.1 mg/dL (8.5-10.1); CREATININE 1.2 mg/dL (0.6-1.3); POTASSIUM 3.8 mmol/L (3.5-5.1)
[2019-08-31] MEDS ORDERED: IBUPROFEN 800 MG TABLET PO SCH (08:00)
--- NOTE | 2019-08-31 08:00 | NUR ---
rn notes RECEIVED PATIENT IN THE BED A/O X3, NO ACUTE RESPIRATORY DISTRESS, V/S STABLE, ADMINISTERED SCHEDULED MEDICATION. PATIENT MINIMAL ASSIST, SAFETY PRECAUTION MAINTAINED ALL THE TIME. INFUSING NS AT 75 ML/HR ON LEFT AC AREA INTACT. SEEN HOSPITALIST, CALL LIGHT WITHIN TO REACH, SAFETY PRECAUTION MAINTAINED ALL THE TIME.
[2019-08-31] MEDS: IBUPROFEN 400 MG TABLET PO SCH ×2 (08:29→13:11)
[2019-08-31] MEDS: DUTASTERIDE (0.5 MG) 0.5 MG CAPSULE PO SCH (08:29)
[2019-08-31] MEDS: MAGNESIUM OXIDE 400 MG TABLET PO SCH ×2 (08:30→17:27)
[2019-08-31] MEDS: MEMANTINE HCL 5 MG TABLET PO SCH ×2 (08:30→17:28)
[2019-08-31] MEDS: DOCUSATE SODIUM 100 MG CAPSULE PO SCH ×2 (08:30→17:27)
[2019-08-31] MEDS: PANTOPRAZOLE 40 MG TABLET.DR PO SCH (08:30)
[2019-08-31] MEDS: ASPIRIN EC 81 MG TABLET.DR PO SCH (08:30)
[2019-08-31] MEDS: AMLODIPINE BESYLATE 5 MG TABLET PO SCH ×2 (08:31→17:34)
[2019-08-31] MEDS ORDERED: ATENOLOL 25 MG TABLET PO SCH (09:00)
[2019-08-31] MEDS ORDERED: Medication Not On Formulary EA (Olmesartan Medoxomil (Benicar) 20 MG) PO SCH (09:00)
[2019-08-31] MEDS ORDERED: HYDROCHLOROTHIAZIDE 25 MG TABLET PO SCH (09:00)
[2019-08-31] MEDS: LOSARTAN POTASSIUM 50 MG TABLET PO SCH ×2 (09:00→17:35)
--- NOTE | 2019-08-31 10:15 | NUR ---
RN NOTES DRESSING CHANGED ON SCALP BY WOUND JAIR CIFUENTES, NO ACUTE DISTRESS, PATIENT REFUSED PAIN, ASSIST PATIENT TO THE BATHROOM BY ASSIST.
[2019-08-31] MEDS: LIDOCAINE 5% (PATCH) 1 EA PATCH TP SCH (10:19)
[2019-08-31] MEDS: TRIAMCINOLONE OINT 0.1% 15 GM TUBE TP SCH (10:20)
[2019-08-31] MEDS: FLUOCINONIDE 0.05% CREAM 60 GM TUBE TP SCH (10:20)
--- NOTE | 2019-08-31 13:23 | NUR ---
RN NOTES ADMINISTERED MILK OF MAGNESIA 30 ML FOR CONSTIPATION PER PATIENT REQUEST.
[2019-08-31] MEDS: clonazePAM 0.5 MG TABLET PO SCH (17:33)
--- NOTE | 2019-08-31 18:30 | NUR ---
RN NOTES PATIENT IN THE BED EATING DINNER, V/S STABLE, ADMINISTERED SCHEDULED MEDICATION, SEEN PATIENT BY CORE STRIPPER Dr VILLANUEVA. PER CORE STRIPPER PATIENT WILL AMBULATE WITHOUT OXYGEN, BUT PATIENT STATE WHEN HE IS IN BED STABLE, WHEN GEY OUT OF BED COMPLAINING OF DIZZINESS. PATIENT TOLERTAED DINNER WELL. CALL LIGHT WITHIN TO REACH. ENDORSED ONCOMING NURSE FOLLOW PLAN OF CARE.
--- NOTE | 2019-08-31 19:20 | NUR ---
LAYOUT ARTIST PM NOTES BEDSIDE REPORT RECIEVED FROM MARIA ISABEL WARE. PT ALERT AND ORIENTED X3 AMERICAN SPEAKING ONLY, [place]. RESPIRATIONS EVEN AND UNLABORED WITH EQUAL RISE AND FALL OF CHEST, PT DENIES ANY PAIN OR DISCOMFORT AT THIS TIME, IV SITE TO LEFT AC #20 G INTACT AND PATENT, NO REDNESS, NO INFILTRATION PRESENT, IVF RUNNING NS AT 75 ML PER HOUR. ON DIRECTOR OF RESEARCH PER REPORT PT RUNS SB TO SR. PT DENIES FEELING DIZZY AT THE MOMENT BED ALARM IS ACTIVE. PT VERBALIZED UNDERSTANDING TO HIT CALL BUTTON FOR ASSISTANCE BUT POINTED OUT HE CANT HEAR INTERCOM. WILL CONTINUE TO MONITOR ,, CALL LIGHT WITHIN REACH, SAFETY PRECAUTIONS IN PLACE, LOW BED AND LOCKED SRX2
[2019-08-31] MEDS: TERAZOSIN HCL 5 MG CAPSULE PO SCH (19:43)
[2019-08-31] MEDS: ATORVASTATIN 10 MG TABLET PO SCH (21:56)
[2019-08-31] MEDS: QUETIAPINE FUMARATE 25 MG TABLET PO SCH (21:56)
[2019-08-31] MEDS: DONEPEZIL 5 MG TABLET PO SCH (21:56)
[2019-08-31] MEDS: GABAPENTIN 400 MG CAPSULE PO SCH (21:57)
--- NOTE | 2019-08-31 22:00 | NUR ---
OFFERED TO APPLY DRESSING TO HEAD SCABBED LACERATION. PT REFUSED. PT STATES"NO I DON'T WANT. ITS FINE."
[2019-08-31] MEDS: IV NS 0.9% 1,000 ML IV PRN (23:17)
[2019-09-01] VITALS (7 sets, daily range): BP systolic 118–141; BP diastolic 44–72
--- NOTE | 2019-09-01 06:04 | NUR ---
CONE RUNNER CLOSING NOTES PT SEEN IN BED IN NO APPARENT DISTRESS WITH EYES CLOSED. IV INFUSING TO LEFT AC NS AT 75ML PER HOUR. BED DOWN LOCKED SRX2 CALL PRECIADO WITHIN REACH. Addendum: 09/01/19 at 0614 by ADARSH SANDOVAL RN ON TELE RUNNING SB AT 48
[2019-09-01 07:10] LABS: BASOPHILS # (AUTO) 0.1 /CMM (0.0-0.2); BASOPHILS % (AUTO) 1.1 % (0.0-2.0); HEMATOCRIT 35 % (39-51); HEMOGLOBIN 12.2 g/dL (13.5-17.5); LYMPHOCYTES # (AUTO) 1.9 /CMM (0.8-4.8); LYMPHOCYTES % (AUTO) 31.3 % (20.0-44.0); MEAN CORPUSCULAR HGB CONC 35 g/dl (31.0-36.0); MEAN CORPUSCULAR VOLUME 87 fL (80-96); MONOCYTES # (AUTO) 0.5 /CMM (0.1-1.30); MONOCYTES % (AUTO) 8.1 % (2.0-12.0); NEUTROPHILS # (AUTO) 3.2 /CMM (1.8-8.9); NEUTROPHILS % (AUTO) 54.5 % (43.0-81.0); PLATELET COUNT (AUTO) 178 /CMM (150-450); RED BLOOD CELL COUNT(AUTO) 4.02 MIL/uL (4.5-6.0); WHITE BLOOD COUNT (AUTO) 5.9 K/uL (4.3-11.0)
--- NOTE | 2019-09-01 07:15 | NUR ---
HYDRO ELECTRIC STATION OPERATOR OPENING NOTES RECEIVED PATIENT IN BED ALERT AND AWAKE ORIENTED X3. HOB ELEVATED. DENIES ANY C/O PAIN NOR DISCOMFORT AT THIS TIME. DENIES ANY C/O HEADACHE, DIZZINESS, N/V. ON TELE MONITORING SR: 50. LEFT AC # 20 INTACT AND PATENT INFUSING NS @ 125ML/HR STEFFI WELL. BED IN LOWEST POSITION, LOCKED. BED ALARM ON. BED SIDERAILS UPX2. CALL LIGHT WITHIN REACH.
[2019-09-01 07:17] LABS: CALCIUM, SERUM 8.8 mg/dL (8.5-10.1); CREATININE 1.3 mg/dL (0.6-1.3)
[2019-09-01] MEDS: IBUPROFEN 400 MG TABLET PO SCH ×2 (08:29→13:30)
[2019-09-01] MEDS: PANTOPRAZOLE 40 MG TABLET.DR PO SCH (08:29)
[2019-09-01] MEDS: DOCUSATE SODIUM 100 MG CAPSULE PO SCH ×2 (08:49→17:31)
[2019-09-01] MEDS: DUTASTERIDE (0.5 MG) 0.5 MG CAPSULE PO SCH (08:49)
[2019-09-01] MEDS: MEMANTINE HCL 5 MG TABLET PO SCH ×2 (08:49→17:32)
[2019-09-01] MEDS: MAGNESIUM OXIDE 400 MG TABLET PO SCH ×2 (08:49→17:32)
[2019-09-01] MEDS: ASPIRIN EC 81 MG TABLET.DR PO SCH (08:49)
[2019-09-01] MEDS: VALSARTAN 80 MG TABLET PO SCH (08:58)
[2019-09-01] MEDS: AMLODIPINE BESYLATE 5 MG TABLET PO SCH ×2 (08:58→17:32)
[2019-09-01] MEDS: LIDOCAINE 5% (PATCH) 1 EA PATCH TP SCH (08:59)
[2019-09-01] MEDS: FLUOCINONIDE 0.05% CREAM 60 GM TUBE TP SCH (08:59)
[2019-09-01] MEDS: TRIAMCINOLONE OINT 0.1% 15 GM TUBE TP SCH (08:59)
[2019-09-01] MEDS: IV NS 0.9% 1,000 ML IV PRN (14:44)
[2019-09-01] MEDS: TERAZOSIN HCL 5 MG CAPSULE PO SCH (17:34)
[2019-09-01] MEDS: clonazePAM 0.5 MG TABLET PO SCH (17:34)
--- NOTE | 2019-09-01 18:57 | NUR ---
TAB BUILDER CLOSING NOTES RESTING COMFORTABLY IN BED. DENIES ANY C/O PAIN NOR DISCOMFORT AT THIS TIME. DENIES ANY C/O HEADACHE, DIZZINESS, N/V. LEFT AC # 20 INTACT AND PATENT INFUSING NS @ 125ML/HR STEFFI WELL.PATIENT HARD OF HEARING. SPEAKER REQUIRES INCREASE IN VOLUME WHEN CONVERSING BUT ABLE TO VERBALIZE AND UNDERSTAND. FAMILY AT BEDSIDE. PER FAMILY, THEY WANT PATIENT TO GO TO A REHAB, REFERRED TO CM. BED IN LOWEST POSITION, LOCKED. BED ALARM ON. BED SIDERAILS UPX2. CALL LIGHT WITHIN REACH. IN NO APPARENT DISTRESS.
--- NOTE | 2019-09-01 19:38 | NUR ---
Family at the bedside. Ms. Spears is in bed alert and orientated. stated she is hot tired and hard time breathing. Sats 92% on 2 liters lungs vis auscultation clear but lower bases diminished. saline lock flushed left F/A patent. Tele reading SB 52 Addendum: 09/01/19 at 1944 by DYANA PORTER RN charted wrong patient above. In bed Mr. Spears smiled when touched and name spoken. IV infusing right F/A @ 75 ml / hr site w/o redness or swelling. denies pain call light reviewed with him and bed alarm on
[2019-09-01] MEDS: ATORVASTATIN 10 MG TABLET PO SCH (22:05)
[2019-09-01] MEDS: GABAPENTIN 400 MG CAPSULE PO SCH (22:05)
[2019-09-01] MEDS: QUETIAPINE FUMARATE 25 MG TABLET PO SCH (22:06)
[2019-09-01] MEDS: DONEPEZIL 5 MG TABLET PO SCH (22:06)
[2019-09-01] MEDS: ZOLPIDEM TARTRATE 10 MG TABLET PO PRN (23:29)
[2019-09-02] VITALS: BP 142/68
[2019-09-02 00:19] VITALS: BP 142/68
[2019-09-02 04:00] VITALS: BP 154/70
[2019-09-02 05:17] VITALS: BP 154/72
[2019-09-02] MEDS: IV NS 0.9% 1,000 ML IV PRN (06:06)
--- NOTE | 2019-09-02 06:13 | NUR ---
moved to room 306-1 via bed. belongings with patient. remains alert and orientated bed alarm on. continent slept well po sleeper given and effective
--- NOTE | 2019-09-02 07:15 | NUR ---
INTERNET APPLICATION DEVELOPER OPENING NOTES RECEIVED PT IN BED, ASLEEP, EASILY AROUSED, A/O X3. MARTIN[place]QUA[place] SPEAKING BUT CAN UNDERSTAND PORTUGUESE. PT ON SUPPLEMENTARY OXYGEN AT 2L VIA NC, WITH NO ACUTE RESPIRATORY DISTRESS NOTED. PT DENIES ANY PAIN OR DISCOMFORT AT THIS TIME. ALSO, DENIES ANY CONCERNS OR QUESTIONS AT THE MOMENT. ON TELEMONITORING WITH SINUS JOEY 50, ASYMPTOMATIC. IVF NS AT 75 ML/HR TO RFA G22, INTACT AND FLUID INFUSING WELL. PT KEPT COMFORTABLE. CALL LIGHT KEPT WITHIN REACH. PT'S BED IN LOWEST, LOCKED POSITION WITH SR X3. WILL CONTINUE PLAN OF CARE.
[2019-09-02] MEDS: DUTASTERIDE (0.5 MG) 0.5 MG CAPSULE PO SCH (08:08)
[2019-09-02] MEDS: PANTOPRAZOLE 40 MG TABLET.DR PO SCH (08:08)
[2019-09-02] MEDS: DOCUSATE SODIUM 100 MG CAPSULE PO SCH (08:08)
[2019-09-02] MEDS: ASPIRIN EC 81 MG TABLET.DR PO SCH (08:08)
[2019-09-02] MEDS: AMLODIPINE BESYLATE 5 MG TABLET PO SCH (08:08)
[2019-09-02] MEDS: MAGNESIUM OXIDE 400 MG TABLET PO SCH (08:08)
[2019-09-02] MEDS: MEMANTINE HCL 5 MG TABLET PO SCH (08:08)
[2019-09-02] MEDS: IBUPROFEN 400 MG TABLET PO SCH ×2 (08:08→13:48)
[2019-09-02 08:09] VITALS: BP 123/64
[2019-09-02 08:09] LABS: CALCIUM, SERUM 8.5 mg/dL (8.5-10.1); CREATININE 1.2 mg/dL (0.6-1.3); POTASSIUM 4.1 mmol/L (3.5-5.1)
[2019-09-02] MEDS: VALSARTAN 80 MG TABLET PO SCH (08:09)
[2019-09-02] MEDS: LIDOCAINE 5% (PATCH) 1 EA PATCH TP SCH (08:09)
[2019-09-02] MEDS: TRIAMCINOLONE OINT 0.1% 15 GM TUBE TP SCH (08:12)
[2019-09-02] MEDS: FLUOCINONIDE 0.05% CREAM 60 GM TUBE TP SCH (08:12)
[2019-09-02 08:13] LABS: BASOPHILS # (AUTO) 0.1 /CMM (0.0-0.2); BASOPHILS % (AUTO) 1.1 % (0.0-2.0); EOSINOPHILS % (AUTO) 6.2 % (0.0-6.0); HEMATOCRIT 35 % (39-51); HEMOGLOBIN 11.9 g/dL (13.5-17.5); LYMPHOCYTES # (AUTO) 1.6 /CMM (0.8-4.8); LYMPHOCYTES % (AUTO) 30.2 % (20.0-44.0); MEAN CORPUSCULAR HGB CONC 34 g/dl (31.0-36.0); MEAN CORPUSCULAR VOLUME 88 fL (80-96); MONOCYTES # (AUTO) 0.4 /CMM (0.1-1.30); MONOCYTES % (AUTO) 7.8 % (2.0-12.0); NEUTROPHILS # (AUTO) 2.9 /CMM (1.8-8.9); NEUTROPHILS % (AUTO) 54.7 % (43.0-81.0); PLATELET COUNT (AUTO) 188 /CMM (150-450); RED BLOOD CELL COUNT(AUTO) 3.96 MIL/uL (4.5-6.0); WHITE BLOOD COUNT (AUTO) 5.4 K/uL (4.3-11.0)
[2019-09-02] MEDS ORDERED: VALS80TA2 PO (12:43)
--- NOTE | 2019-09-02 15:15 | NUR ---
DESIGN EDITOR NOTES PT IN BED, AWAKE, A/O X2-3, TO BE DISCHARGE TO [facility]. [place] VERDEAN SPEAKING BUT CAN UNDERSTAND SPANISH. PT ON SUPPLEMENTARY OXYGEN AT 2L VIA NC, WITH NO ACUTE RESPIRATORY DISTRESS NOTED. PT DENIES ANY PAIN OR DISCOMFORT AT THE TIME OF DISCHARGE. PIV TO RFA G22, REMOVED AND APPLIED DRY DRESSING. SKIN ISSUES PHOTOS TAKEN AND FILED IN THE CHART. ALL NEEDS AND CARE PROVIDED TO THE PT. DISCHARGE PAPERS AND INVENTORY LIST REVIEWED AND SIGNED BY PT. PT LEFT THE UNIT AT 1500 VIA GURNEY WITH 2EMTS ASSIST, TRANSPORTED VIA AMBULANCE. HOSPITALIST/GRAIN COMBINE DRIVER/CN AND CN/LESTER AWARE OF DISCHARGE.
--- NOTE | 2019-09-02 15:20 | NUR ---
RN NOTES A PAIR OF SHOES WAS LEFT BY TRANSPORT. BELONGING LABELED AND KEPT IN THE STORAGE ROOM AT 3WEST. [facility] NURSE/JACQUE MADE AWARE WELL.
== END 2019-09-02 15:00 | DRG 73 ==
LOC: ER 20:29 → TELE 22:01
PROVIDERS: ADMIT Registered Nurse; ATTEND Nurse Practitioner Acute Care
DX: G90.8 Other disorders of autonomic nervous system (principal); N17.0 Acute kidney failure with tubular necrosis; E87.1 Hypo-osmolality and hyponatremia; J98.11 Atelectasis; A08.4 Viral intestinal infection, unspecified; F03.90 Unspecified dementia, unspecified severity, without behavioral disturbance, psychotic disturbance, mood disturbance, and anxiety; D63.8 Anemia in other chronic diseases classified elsewhere; E86.1 Hypovolemia; E86.0 Dehydration; E78.5 Hyperlipidemia, unspecified; N40.0 Benign prostatic hyperplasia without lower urinary tract symptoms; I10 Essential (primary) hypertension; H91.90 Unspecified hearing loss, unspecified ear; D35.2 Benign neoplasm of pituitary gland; Z87.891 Personal history of nicotine dependence; Z85.528 Personal history of other malignant neoplasm of kidney; Z79.82 Long term (current) use of aspirin; Z91.81 History of falling; G62.9 Polyneuropathy, unspecified; S01.01XD Laceration without foreign body of scalp, subsequent encounter; S60.512D Abrasion of left hand, subsequent encounter; X58.XXXD Exposure to other specified factors, subsequent encounter; I95.1 Orthostatic hypotension; S09.90XD Unspecified injury of head, subsequent encounter; F07.81 Postconcussional syndrome
CPT/HCPCS: 36415; 80048-TC; 80076-TC; 81000-TC; 83735-TC; 84100-TC; 84484-TC; 85025-TC; 87081-TC; 97116-TC; 97530-TC; G0378; J7030